=== PATIENT | male | born 1955 | race African-American/Black ===

== ENCOUNTER 2022-02-18 12:19 | Inpatient (IN) | payer OTHER, SELFPAY ==
[2022-02-18 13:06] LABS: #Eosinphils 0.1 thou/uL (0.0-0.7); #Lymphocytes 2.2 thou/uL (1.20-3.40); #Monocytes 0.5 thou/uL (0.11-0.59); #Neutrophils 2.2 thou/uL (1.40-6.50); %Basophils 0.8 % (0.0-1.0); %Lymphocytes 43.4 % (21.0-51.0); %Monocytes 10.1 % (0.0-10.0); %Neutrophils 43.7 % (42.0-75.0); Mean Corpuscular HGB CONC 32.6 g/dL (32.0-36.0); Mean Corpuscular Hemoglobin 29.7 pg (27.0-31.0); Mean Corpuscular Volume 91.3 fL (78.0-98.0); Mean Platelet Volume 6.2 fL (7.4-10.4); Platelet Count 260 thou/uL (130-400); RBC Distribution Width 11.8 % (11.5-14.5); Red Blood Cell (RBC) Count 5.03 mill/uL (4.70-6.10)
[2022-02-18 13:26] LABS: ALT (SGPT) 39 U/L (8-55); AST (SGOT) 67 U/L (5-34); Albumin 3.6 g/dL (3.4-4.8); Alkaline Phosphatase 76 U/L (40-110); Anion Gap 15 mmol/L (10-20); BUN (Urea Nitrogen) 7 mg/dL (8.4-25.7); Bilirubin, Total 0.4 mg/dL (0.2-1.2); Calc. Creatinine Clearance 0 mL/min (70-130); Calcium 9.1 mg/dL (7.8-10.44); Carbon Dioxide 28 mmol/L (23-31); Chloride 102 mmol/L (98-107); Estimated GFR 98; Globulin 3.8 g/dL (2.4-3.5); Glucose 88 mg/dL (80-115); Potassium 3.2 mmol/L (3.5-5.1); Protein, Total 7.4 g/dL (5.8-8.1); Sodium 142 mmol/L (136-145)
[2022-02-18] MEDS ORDERED: Cefepime 2 GM VIAL ONE (15:12)
[2022-02-18 15:52] LABS: Lactic Acid 2.1 mmol/L (0.5-2.2)
[2022-02-18] MEDS ORDERED: Vancomycin 1 GM/200 ML BAG ONE (16:15)
[2022-02-18 17:35] LABS: SARS-CoV-2 NAA Rapid Test Not Detected (NotDetected)
[2022-02-18 19:44] VITALS: BMI 17.2
[2022-02-18] MEDS ORDERED: Potassium Chloride 20 MEQ TAB PO SCH (19:45)
[2022-02-18] MEDS: cefTRIAXone\\ROCEPHIN 2 GM in Sodium Chloride 0.9% 100 ML IVPB SCH (22:19)
[2022-02-19 00:41] LABS: Amphetamine Not Detected (NotDetected); Barbiturates Screen Not Detected (NotDetected); Benzodiazepine Screen Not Detected (NotDetected); Cocaine Metabolite Screen Detected (NotDetected); Methadone Not Detected (NotDetected); Methamphetamine Not Detected (NotDetected); Opiate Screen Not Detected (NotDetected); Oxycodone Screen Not Detected (NotDetected); Phencyclidine (PCP) Not Detected (NotDetected); THC/Cannabinoid Screen Detected (NotDetected); Tricyclic Screen Not Detected (NotDetected)
[2022-02-19 06:00] LABS: #Eosinphils 0.1 thou/uL (0.0-0.7); #Lymphocytes 2.3 thou/uL (1.20-3.40); #Monocytes 0.4 thou/uL (0.11-0.59); #Neutrophils 2.1 thou/uL (1.40-6.50); %Eosinophils 2.3 % (0.0-10.0); %Lymphocytes 45.6 % (21.0-51.0); %Monocytes 8.5 % (0.0-10.0); %Neutrophils 42.6 % (42.0-75.0); Hemoglobin 14.7 g/dL (14.0-18.0); Mean Corpuscular HGB CONC 33.1 g/dL (32.0-36.0); Mean Corpuscular Hemoglobin 30.2 pg (27.0-31.0); Mean Corpuscular Volume 91.4 fL (78.0-98.0); Mean Platelet Volume 6.6 fL (7.4-10.4); Platelet Count 238 thou/uL (130-400); RBC Distribution Width 11.8 % (11.5-14.5); Red Blood Cell (RBC) Count 4.88 mill/uL (4.70-6.10)
[2022-02-19 06:27] LABS: ALT (SGPT) 34 U/L (8-55); AST (SGOT) 52 U/L (5-34); Albumin 3.1 g/dL (3.4-4.8); Alkaline Phosphatase 67 U/L (40-110); Anion Gap 15 mmol/L (10-20); BUN (Urea Nitrogen) 8 mg/dL (8.4-25.7); Bilirubin, Total 0.4 mg/dL (0.2-1.2); Calc. Creatinine Clearance 78 mL/min (70-130); Carbon Dioxide 23 mmol/L (23-31); Chloride 104 mmol/L (98-107); Estimated GFR 103; Globulin 3.8 g/dL (2.4-3.5); Glucose 93 mg/dL (80-115); Potassium 3.9 mmol/L (3.5-5.1); Protein, Total 6.9 g/dL (5.8-8.1); Sodium 138 mmol/L (136-145)
[2022-02-19] MEDS ORDERED: Amlodipine 5 MG TAB PO SCH ×2 (10:30→17:45)
[2022-02-19] MEDS: Multivit, Therapeutic 1 TAB PO SCH (10:36)
[2022-02-19] MEDS: Folic Acid 1 MG TAB PO SCH (10:36)
[2022-02-19] MEDS: Enoxaparin Sodium 40 MG/0.4 ML SYRINGE SC SCH (10:36)
[2022-02-19 16:23] LABS: Hemoglobin A1c 5.4 % (4.0-6.0)
[2022-02-19 16:29] LABS: Cardiac Risk 2.4 (Less than 4.5)
[2022-02-19] MEDS: cefTRIAXone\\ROCEPHIN 2 GM in Sodium Chloride 0.9% 100 ML IVPB SCH (19:34)
[2022-02-20] MEDS: Acetaminophen 325 MG TAB PO PRN ×2 (03:31→22:40)
[2022-02-20 06:15] LABS: Hemoglobin 14.7 g/dL (14.0-18.0); Mean Corpuscular HGB CONC 32.3 g/dL (32.0-36.0); Mean Corpuscular Hemoglobin 29.7 pg (27.0-31.0); Mean Corpuscular Volume 91.9 fL (78.0-98.0); Mean Platelet Volume 6.6 fL (7.4-10.4); Platelet Count 233 thou/uL (130-400); RBC Distribution Width 11.7 % (11.5-14.5); Red Blood Cell (RBC) Count 4.97 mill/uL (4.70-6.10); White Blood Cell (WBC) Count 4.3 thou/uL (4.8-10.8)
[2022-02-20 06:40] LABS: ALT (SGPT) 36 U/L (8-55); AST (SGOT) 57 U/L (5-34); Albumin 3.2 g/dL (3.4-4.8); Alkaline Phosphatase 68 U/L (40-110); Anion Gap 15 mmol/L (10-20); BUN (Urea Nitrogen) 8 mg/dL (8.4-25.7); Bilirubin, Total 0.4 mg/dL (0.2-1.2); Calc. Creatinine Clearance 80 mL/min (70-130); Carbon Dioxide 24 mmol/L (23-31); Chloride 103 mmol/L (98-107); Estimated GFR 104; Globulin 3.9 g/dL (2.4-3.5); Glucose 94 mg/dL (80-115); Potassium 3.5 mmol/L (3.5-5.1); Protein, Total 7.1 g/dL (5.8-8.1); Sodium 138 mmol/L (136-145)
[2022-02-20] MEDS ORDERED: Amlodipine 5 MG TAB PO SCH (09:00)
[2022-02-20] MEDS: Amlodipine 10 MG TAB PO SCH (09:17)
[2022-02-20] MEDS: Enoxaparin Sodium 40 MG/0.4 ML SYRINGE SC SCH (09:17)
[2022-02-20] MEDS: Multivit, Therapeutic 1 TAB PO SCH (09:17)
[2022-02-20] MEDS: Folic Acid 1 MG TAB PO SCH (09:17)
[2022-02-20] MEDS: Morphine 2 MG/ML VIAL SLOW IVP PRN (22:41)
[2022-02-21 05:51] LABS: Hemoglobin 14.1 g/dL (14.0-18.0); Mean Corpuscular HGB CONC 32.7 g/dL (32.0-36.0); Mean Corpuscular Volume 91.6 fL (78.0-98.0); Mean Platelet Volume 6.5 fL (7.4-10.4); Platelet Count 236 thou/uL (130-400); RBC Distribution Width 11.8 % (11.5-14.5); Red Blood Cell (RBC) Count 4.69 mill/uL (4.70-6.10); White Blood Cell (WBC) Count 4.6 thou/uL (4.8-10.8)
[2022-02-21 06:13] LABS: ALT (SGPT) 38 U/L (8-55); AST (SGOT) 58 U/L (5-34); Alkaline Phosphatase 73 U/L (40-110); Anion Gap 14 mmol/L (10-20); BUN (Urea Nitrogen) 11 mg/dL (8.4-25.7); Bilirubin, Total 0.3 mg/dL (0.2-1.2); Calc. Creatinine Clearance 75 mL/min (70-130); Carbon Dioxide 22 mmol/L (23-31); Chloride 104 mmol/L (98-107); Estimated GFR 102; Globulin 3.9 g/dL (2.4-3.5); Glucose 98 mg/dL (80-115); Protein, Total 6.9 g/dL (5.8-8.1); Sodium 136 mmol/L (136-145)
[2022-02-21] MEDS: Enoxaparin Sodium 40 MG/0.4 ML SYRINGE SC SCH (08:46)
[2022-02-21] MEDS: Amlodipine 10 MG TAB PO SCH (08:46)
[2022-02-21] MEDS: Multivit, Therapeutic 1 TAB PO SCH (08:46)
[2022-02-21] MEDS: Folic Acid 1 MG TAB PO SCH (08:46)
[2022-02-21] MEDS ORDERED: Iopamidol-370 76% 500 ML 1 ML ONE (13:07)
[2022-02-21] MEDS: Acetaminophen 325 MG TAB PO PRN (22:01)
[2022-02-21] MEDS: Thiamine 100 MG TAB PO SCH (22:01)
[2022-02-21] MEDS: Morphine 2 MG/ML VIAL SLOW IVP PRN (22:04)
[2022-02-22] MEDS: Morphine 2 MG/ML VIAL SLOW IVP PRN ×2 (09:31→20:38)
[2022-02-22] MEDS: Amlodipine 10 MG TAB PO SCH (09:32)
[2022-02-22 09:39] LABS: #Basophils 0.1 thou/uL (0.0-0.2); #Eosinphils 0.1 thou/uL (0.0-0.7); #Lymphocytes 1.9 thou/uL (1.20-3.40); #Monocytes 0.5 thou/uL (0.11-0.59); #Neutrophils 1.8 thou/uL (1.40-6.50); %Basophils 1.4 % (0.0-1.0); %Eosinophils 2.7 % (0.0-10.0); %Lymphocytes 44.6 % (21.0-51.0); %Monocytes 10.5 % (0.0-10.0); %Neutrophils 40.8 % (42.0-75.0); Mean Corpuscular HGB CONC 32.2 g/dL (32.0-36.0); Mean Corpuscular Hemoglobin 29.7 pg (27.0-31.0); Mean Corpuscular Volume 92.4 fL (78.0-98.0); Mean Platelet Volume 6.3 fL (7.4-10.4); Platelet Count 232 thou/uL (130-400); RBC Distribution Width 11.8 % (11.5-14.5); Red Blood Cell (RBC) Count 5.04 mill/uL (4.70-6.10); White Blood Cell (WBC) Count 4.3 thou/uL (4.8-10.8)
[2022-02-22 10:03] LABS: ALT (SGPT) 48 U/L (8-55); AST (SGOT) 70 U/L (5-34); Albumin 3.2 g/dL (3.4-4.8); Alkaline Phosphatase 69 U/L (40-110); Anion Gap 12 mmol/L (10-20); BUN (Urea Nitrogen) 12 mg/dL (8.4-25.7); Bilirubin, Total 0.3 mg/dL (0.2-1.2); Calc. Creatinine Clearance 75 mL/min (70-130); Carbon Dioxide 24 mmol/L (23-31); Chloride 103 mmol/L (98-107); Estimated GFR 102; Globulin 3.9 g/dL (2.4-3.5); Glucose 98 mg/dL (80-115); Potassium 4.1 mmol/L (3.5-5.1); Protein, Total 7.1 g/dL (5.8-8.1); Sodium 135 mmol/L (136-145)
[2022-02-22] MEDS: Enoxaparin Sodium 40 MG/0.4 ML SYRINGE SC SCH ×2 (11:13→20:40)
[2022-02-22] MEDS: Multivit, Therapeutic 1 TAB PO SCH (11:13)
[2022-02-22] MEDS: Folic Acid 1 MG TAB PO SCH (11:13)
[2022-02-22] MEDS: Aspirin 81 mg Enteric Coated Tablet PO SCH (11:13)
[2022-02-22] MEDS: Acetaminophen 325 MG TAB PO PRN ×2 (16:12→20:39)
[2022-02-22] MEDS: Thiamine 100 MG TAB PO SCH (20:40)
[2022-02-23] MEDS: Morphine 2 MG/ML VIAL SLOW IVP PRN ×2 (05:48→22:49)
[2022-02-23] MEDS: Acetaminophen 325 MG TAB PO PRN ×2 (05:48→20:36)
[2022-02-23] MEDS ORDERED: Lactated Ringer's 1,000 ML IV SCH (07:00)
[2022-02-23 07:09] LABS: #Eosinphils 0.1 thou/uL (0.0-0.7); #Lymphocytes 2.1 thou/uL (1.20-3.40); #Monocytes 0.6 thou/uL (0.11-0.59); %Basophils 0.5 % (0.0-1.0); %Eosinophils 2.3 % (0.0-10.0); %Lymphocytes 43.1 % (21.0-51.0); %Neutrophils 42.1 % (42.0-75.0); Hemoglobin 14.5 g/dL (14.0-18.0); Mean Corpuscular HGB CONC 32.4 g/dL (32.0-36.0); Mean Corpuscular Hemoglobin 30.1 pg (27.0-31.0); Mean Corpuscular Volume 92.6 fL (78.0-98.0); Mean Platelet Volume 6.7 fL (7.4-10.4); Platelet Count 217 thou/uL (130-400); RBC Distribution Width 11.9 % (11.5-14.5); Red Blood Cell (RBC) Count 4.83 mill/uL (4.70-6.10); White Blood Cell (WBC) Count 4.8 thou/uL (4.8-10.8)
[2022-02-23 07:29] LABS: ALT (SGPT) 50 U/L (8-55); AST (SGOT) 67 U/L (5-34); Albumin 3.1 g/dL (3.4-4.8); Alkaline Phosphatase 74 U/L (40-110); Anion Gap 13 mmol/L (10-20); BUN (Urea Nitrogen) 11 mg/dL (8.4-25.7); Bilirubin, Total 0.3 mg/dL (0.2-1.2); Calc. Creatinine Clearance 78 mL/min (70-130); Carbon Dioxide 22 mmol/L (23-31); Chloride 105 mmol/L (98-107); Estimated GFR 103; Globulin 3.9 g/dL (2.4-3.5); Glucose 99 mg/dL (80-115); Potassium 3.9 mmol/L (3.5-5.1); Sodium 136 mmol/L (136-145)
[2022-02-23] MEDS: Folic Acid 1 MG TAB PO SCH (08:19)
[2022-02-23] MEDS: Aspirin 81 mg Enteric Coated Tablet PO SCH (08:19)
[2022-02-23] MEDS: Amlodipine 10 MG TAB PO SCH (08:19)
[2022-02-23] MEDS: Multivit, Therapeutic 1 TAB PO SCH (08:19)
[2022-02-23] MEDS ORDERED: Heparin 5,000 UNITS/ML VIAL ONE ×2 (08:30→11:09)
[2022-02-23] MEDS ORDERED: Protamine Sulfate 50 MG/5 ML VIAL ONE (08:30)
[2022-02-23] MEDS ORDERED: fentaNYL Citrate/PF 100 MCG/2 ML SYRINGE ONE (09:07)
[2022-02-23] MEDS ORDERED: Sodium Chloride 0.9% 100 ML ONE (09:17)
[2022-02-23] MEDS ORDERED: CEFAZOLIN 2 GM VIAL ONE (09:17)
[2022-02-23] MEDS ORDERED: Dexamethasone 20 MG/5 ML VIAL ONE (09:40)
[2022-02-23] MEDS ORDERED: Lidocaine 1% MPF 2 ML VIAL ONE (09:40)
[2022-02-23] MEDS ORDERED: Rocuronium Bromide 10 MG/ML (10ML VIAL) ONE (09:40)
[2022-02-23] MEDS ORDERED: Glycopyrrolate 0.2 MG/ML 5 ML SYRINGE ONE (09:40)
[2022-02-23] MEDS ORDERED: PROPOFOL 200 MG/20 ML VIAL ONE (09:40)
[2022-02-23] MEDS ORDERED: NEOSTIGMINE 3 MG/3 ML SYR 3 MG/3 ML SYRINGE ONE (09:40)
[2022-02-23] MEDS ORDERED: Phenylephrine 10 MG/ML VIAL ONE (09:40)
[2022-02-23] MEDS ORDERED: Ondansetron PF 4 MG/2 ML Vial ONE (09:40)
[2022-02-23] MEDS ORDERED: Ondansetron PF 4 MG/2 ML Vial IVP PRN (13:01)
[2022-02-23] MEDS ORDERED: Fentanyl 100 MCG/2 ML VIAL SLOW IVP PRN ×2 (13:01)
[2022-02-23] MEDS: Ketorolac Tromethamine 30 MG/ML VIAL IVP SCH ×2 (16:55→20:36)
[2022-02-23] MEDS: CEFAZOLIN 2 GM in Sodium Chloride 0.9% 100 ML IVPB SCH (16:56)
[2022-02-23] MEDS: Sodium Chloride 0.9% 1,000 ML IV SCH (16:56)
[2022-02-23] MEDS ORDERED: Polyvinyl Alcohol 1.4%/Povidone 0.6% Opth Drops EA EYE SCH (17:30)
[2022-02-23] MEDS: Thiamine 100 MG TAB PO SCH (20:36)
[2022-02-23] MEDS: Enoxaparin Sodium 40 MG/0.4 ML SYRINGE SC SCH (21:21)
[2022-02-24] MEDS: CEFAZOLIN 2 GM in Sodium Chloride 0.9% 100 ML IVPB SCH ×2 (02:01→09:01)
[2022-02-24] MEDS: Morphine 2 MG/ML VIAL SLOW IVP PRN (05:55)
[2022-02-24] MEDS: Ketorolac Tromethamine 30 MG/ML VIAL IVP SCH (05:55)
[2022-02-24] MEDS: Acetaminophen 325 MG TAB PO PRN ×2 (05:56→20:37)
[2022-02-24] MEDS: Aspirin Chewable 81 MG TAB PO SCH (09:01)
[2022-02-24] MEDS: Amlodipine 10 MG TAB PO SCH (09:01)
[2022-02-24] MEDS: Folic Acid 1 MG TAB PO SCH (09:01)
[2022-02-24] MEDS: Multivit, Therapeutic 1 TAB PO SCH (09:01)
[2022-02-24] MEDS: Sodium Chloride 0.9% 1,000 ML IV SCH (09:02)
[2022-02-24] MEDS: traMADol HCl 50 MG TAB PO PRN ×2 (09:07→20:37)
[2022-02-24] MEDS: Thiamine 100 MG TAB PO SCH (20:37)
[2022-02-24] MEDS: Enoxaparin Sodium 40 MG/0.4 ML SYRINGE SC SCH (20:37)
[2022-02-25] MEDS: Sodium Chloride 0.9% 1,000 ML IV SCH (05:14)
[2022-02-25] MEDS: Acetaminophen 325 MG TAB PO PRN (05:15)
[2022-02-25] MEDS: traMADol HCl 50 MG TAB PO PRN ×2 (05:15→17:39)
[2022-02-25 05:35] LABS: #Eosinphils 0.1 thou/uL (0.0-0.7); #Lymphocytes 2.2 thou/uL (1.20-3.40); #Monocytes 0.8 thou/uL (0.11-0.59); #Neutrophils 4.7 thou/uL (1.40-6.50); %Basophils 0.3 % (0.0-1.0); %Eosinophils 0.8 % (0.0-10.0); %Lymphocytes 28.5 % (21.0-51.0); %Monocytes 9.6 % (0.0-10.0); %Neutrophils 60.8 % (42.0-75.0); Hemoglobin 12.3 g/dL (14.0-18.0); Mean Corpuscular HGB CONC 31.7 g/dL (32.0-36.0); Mean Corpuscular Hemoglobin 29.2 pg (27.0-31.0); Mean Corpuscular Volume 92.1 fL (78.0-98.0); Mean Platelet Volume 6.7 fL (7.4-10.4); Platelet Count 178 thou/uL (130-400); RBC Distribution Width 12.1 % (11.5-14.5); Red Blood Cell (RBC) Count 4.22 mill/uL (4.70-6.10); White Blood Cell (WBC) Count 7.8 thou/uL (4.8-10.8)
[2022-02-25 05:59] LABS: Anion Gap 13 mmol/L (10-20); BUN (Urea Nitrogen) 10 mg/dL (8.4-25.7); Calc. Creatinine Clearance 87 mL/min (70-130); Calcium 8.4 mg/dL (7.8-10.44); Carbon Dioxide 20 mmol/L (23-31); Chloride 107 mmol/L (98-107); Estimated GFR 107; Glucose 102 mg/dL (80-115); Potassium 3.9 mmol/L (3.5-5.1); Sodium 136 mmol/L (136-145)
[2022-02-25] MEDS: Aspirin Chewable 81 MG TAB PO SCH (09:16)
[2022-02-25] MEDS: Amlodipine 10 MG TAB PO SCH (09:16)
[2022-02-25] MEDS: Folic Acid 1 MG TAB PO SCH (09:16)
[2022-02-25] MEDS: Multivit, Therapeutic 1 TAB PO SCH (09:16)
[2022-02-25] MEDS: Thiamine 100 MG TAB PO SCH (21:25)
[2022-02-25] MEDS: Enoxaparin Sodium 40 MG/0.4 ML SYRINGE SC SCH (21:25)
[2022-02-26] MEDS: Sodium Chloride 0.9% 1,000 ML IV SCH ×2 (00:39→22:08)
[2022-02-26 07:07] LABS: #Lymphocytes 2.1 thou/uL (1.20-3.40); #Monocytes 0.6 thou/uL (0.11-0.59); #Neutrophils 4.6 thou/uL (1.40-6.50); %Basophils 0.1 % (0.0-1.0); %Eosinophils 0.1 % (0.0-10.0); %Monocytes 8.4 % (0.0-10.0); %Neutrophils 63.3 % (42.0-75.0); Hemoglobin 12.4 g/dL (14.0-18.0); Mean Corpuscular HGB CONC 32.3 g/dL (32.0-36.0); Mean Corpuscular Hemoglobin 29.4 pg (27.0-31.0); Mean Corpuscular Volume 90.9 fL (78.0-98.0); Mean Platelet Volume 6.4 fL (7.4-10.4); Platelet Count 200 thou/uL (130-400); RBC Distribution Width 11.9 % (11.5-14.5); Red Blood Cell (RBC) Count 4.21 mill/uL (4.70-6.10); White Blood Cell (WBC) Count 7.3 thou/uL (4.8-10.8)
[2022-02-26 07:27] LABS: Anion Gap 12 mmol/L (10-20); BUN (Urea Nitrogen) 9 mg/dL (8.4-25.7); Calc. Creatinine Clearance 90 mL/min (70-130); Carbon Dioxide 22 mmol/L (23-31); Chloride 101 mmol/L (98-107); Estimated GFR 108; Glucose 107 mg/dL (80-115); Sodium 131 mmol/L (136-145)
[2022-02-26] MEDS: Amlodipine 10 MG TAB PO SCH (09:40)
[2022-02-26] MEDS: Folic Acid 1 MG TAB PO SCH (09:40)
[2022-02-26] MEDS: Aspirin Chewable 81 MG TAB PO SCH (09:40)
[2022-02-26] MEDS: Multivit, Therapeutic 1 TAB PO SCH (09:40)
[2022-02-26] MEDS ORDERED: Polyethylene Glycol 3350 17 GM Packet PO SCH (11:00)
[2022-02-26] MEDS ORDERED: Polyethylene Glycol 3350 17 GM Packet PO PRN (11:34)
[2022-02-26] MEDS: traMADol HCl 50 MG TAB PO PRN (15:16)
[2022-02-26] MEDS: Thiamine 100 MG TAB PO SCH (20:35)
[2022-02-26] MEDS: Enoxaparin Sodium 40 MG/0.4 ML SYRINGE SC SCH (20:35)
[2022-02-27 05:26] LABS: #Eosinphils 0.1 thou/uL (0.0-0.7); #Lymphocytes 2.7 thou/uL (1.20-3.40); #Monocytes 0.6 thou/uL (0.11-0.59); #Neutrophils 4.1 thou/uL (1.40-6.50); %Basophils 0.2 % (0.0-1.0); %Eosinophils 0.9 % (0.0-10.0); %Lymphocytes 36.3 % (21.0-51.0); %Monocytes 8.2 % (0.0-10.0); %Neutrophils 54.4 % (42.0-75.0); Hemoglobin 11.9 g/dL (14.0-18.0); Mean Corpuscular HGB CONC 33.1 g/dL (32.0-36.0); Mean Corpuscular Volume 90.6 fL (78.0-98.0); Mean Platelet Volume 6.6 fL (7.4-10.4); Platelet Count 224 thou/uL (130-400); RBC Distribution Width 11.7 % (11.5-14.5); Red Blood Cell (RBC) Count 3.95 mill/uL (4.70-6.10); White Blood Cell (WBC) Count 7.5 thou/uL (4.8-10.8)
[2022-02-27] MEDS: traMADol HCl 50 MG TAB PO PRN (05:37)
[2022-02-27 05:52] LABS: Anion Gap 12 mmol/L (10-20); BUN (Urea Nitrogen) 16 mg/dL (8.4-25.7); Calc. Creatinine Clearance 77 mL/min (70-130); Calcium 9.1 mg/dL (7.8-10.44); Carbon Dioxide 21 mmol/L (23-31); Chloride 99 mmol/L (98-107); Estimated GFR 103; Glucose 131 mg/dL (80-115); Potassium 3.4 mmol/L (3.5-5.1); Sodium 129 mmol/L (136-145)
[2022-02-27 08:25] LABS: Troponin I Less than 0.010 ng/mL (< 0.028)
[2022-02-27] MEDS ORDERED: Potassium Chloride 20 MEQ TAB PO SCH (08:45)
[2022-02-27] MEDS: Aspirin Chewable 81 MG TAB PO SCH (08:56)
[2022-02-27] MEDS: Amlodipine 10 MG TAB PO SCH (08:56)
[2022-02-27] MEDS: Multivit, Therapeutic 1 TAB PO SCH (08:57)
[2022-02-27] MEDS: Folic Acid 1 MG TAB PO SCH (08:57)
[2022-02-27] MEDS ORDERED: Polyethylene Glycol 3350 17 GM Packet PO SCH (09:00)
[2022-02-27] MEDS ORDERED: Iopamidol-370 76% 500 ML 1 ML ONE (10:13)
[2022-02-27] MEDS ORDERED: VANCOMYCIN 1.25 GM/250 ML BAG 1.25 GM in Premix Bag 1 BAG IVPB SCH (11:30)
[2022-02-27 13:23] LABS: SARS-CoV-2 NAA Rapid Test Not Detected (NotDetected)
[2022-02-27] MEDS: Cefepime 2 GM in Sodium Chloride 0.9% 100 ML IVPB SCH ×2 (14:56→21:46)
[2022-02-27] MEDS: Thiamine 100 MG TAB PO SCH (20:38)
[2022-02-27] MEDS: Enoxaparin Sodium 40 MG/0.4 ML SYRINGE SC SCH (20:39)
[2022-02-28] MEDS: Vancomycin HCl 750 MG in Sodium Chloride 0.9% 250 ML 250 ML IVPB SCH ×2 (01:38→12:08)
[2022-02-28 06:09] LABS: #Eosinphils 0.1 thou/uL (0.0-0.7); #Lymphocytes 1.3 thou/uL (1.20-3.40); #Monocytes 0.5 thou/uL (0.11-0.59); #Neutrophils 2.4 thou/uL (1.40-6.50); %Basophils 0.2 % (0.0-1.0); %Eosinophils 2.9 % (0.0-10.0); %Lymphocytes 28.9 % (21.0-51.0); %Monocytes 11.6 % (0.0-10.0); %Neutrophils 56.3 % (42.0-75.0); Hemoglobin 10.6 g/dL (14.0-18.0); Mean Corpuscular HGB CONC 32.1 g/dL (32.0-36.0); Mean Corpuscular Hemoglobin 28.8 pg (27.0-31.0); Mean Corpuscular Volume 89.9 fL (78.0-98.0); Mean Platelet Volume 6.1 fL (7.4-10.4); Platelet Count 199 thou/uL (130-400); RBC Distribution Width 11.5 % (11.5-14.5); Red Blood Cell (RBC) Count 3.69 mill/uL (4.70-6.10); White Blood Cell (WBC) Count 4.3 thou/uL (4.8-10.8)
[2022-02-28] MEDS: Cefepime 2 GM in Sodium Chloride 0.9% 100 ML IVPB SCH ×2 (06:12→13:38)
[2022-02-28] MEDS: Acetaminophen 325 MG TAB PO PRN (06:12)
[2022-02-28 06:33] LABS: ALT (SGPT) 30 U/L (8-55); AST (SGOT) 42 U/L (5-34); Albumin 2.6 g/dL (3.4-4.8); Alkaline Phosphatase 55 U/L (40-110); Anion Gap 12 mmol/L (10-20); BUN (Urea Nitrogen) 13 mg/dL (8.4-25.7); Bilirubin, Total 0.7 mg/dL (0.2-1.2); Calc. Creatinine Clearance 93 mL/min (70-130); Calcium 8.4 mg/dL (7.8-10.44); Carbon Dioxide 21 mmol/L (23-31); Chloride 102 mmol/L (98-107); Estimated GFR 109; Globulin 3.3 g/dL (2.4-3.5); Glucose 94 mg/dL (80-115); Potassium 3.8 mmol/L (3.5-5.1); Protein, Total 5.9 g/dL (5.8-8.1); Sodium 131 mmol/L (136-145)
[2022-02-28] MEDS: Folic Acid 1 MG TAB PO SCH (09:50)
[2022-02-28] MEDS: Multivit, Therapeutic 1 TAB PO SCH (09:50)
[2022-02-28] MEDS: Amlodipine 10 MG TAB PO SCH (09:50)
[2022-02-28] MEDS: Aspirin Chewable 81 MG TAB PO SCH (09:51)
[2022-02-28] MEDS: Polyethylene Glycol 3350 17 GM Packet PO SCH (09:52)
[2022-02-28] MEDS: Enoxaparin Sodium 40 MG/0.4 ML SYRINGE SC SCH (20:28)
[2022-02-28] MEDS: Thiamine 100 MG TAB PO SCH (20:28)
[2022-02-28 23:33] LABS: Vancomycin, Trough 4.7 ug/mL
[2022-03-01] MEDS: traMADol HCl 50 MG TAB PO PRN ×2 (03:27→17:08)
[2022-03-01 06:05] LABS: #Eosinphils 0.2 thou/uL (0.0-0.7); #Lymphocytes 1.4 thou/uL (1.20-3.40); #Monocytes 0.6 thou/uL (0.11-0.59); #Neutrophils 2.9 thou/uL (1.40-6.50); %Basophils 0.5 % (0.0-1.0); %Lymphocytes 27.5 % (21.0-51.0); %Monocytes 12.1 % (0.0-10.0); %Neutrophils 56.9 % (42.0-75.0); Hemoglobin 10.6 g/dL (14.0-18.0); Mean Corpuscular Hemoglobin 29.6 pg (27.0-31.0); Mean Corpuscular Volume 89.6 fL (78.0-98.0); Mean Platelet Volume 6.5 fL (7.4-10.4); Platelet Count 233 thou/uL (130-400); RBC Distribution Width 11.4 % (11.5-14.5); Red Blood Cell (RBC) Count 3.58 mill/uL (4.70-6.10); White Blood Cell (WBC) Count 5.1 thou/uL (4.8-10.8)
[2022-03-01 06:25] LABS: ALT (SGPT) 34 U/L (8-55); AST (SGOT) 43 U/L (5-34); Albumin 2.8 g/dL (3.4-4.8); Alkaline Phosphatase 64 U/L (40-110); Anion Gap 12 mmol/L (10-20); BUN (Urea Nitrogen) 10 mg/dL (8.4-25.7); Bilirubin, Total 0.8 mg/dL (0.2-1.2); Calc. Creatinine Clearance 90 mL/min (70-130); Calcium 8.5 mg/dL (7.8-10.44); Carbon Dioxide 22 mmol/L (23-31); Chloride 103 mmol/L (98-107); Estimated GFR 108; Globulin 3.4 g/dL (2.4-3.5); Glucose 99 mg/dL (80-115); Potassium 3.8 mmol/L (3.5-5.1); Protein, Total 6.2 g/dL (5.8-8.1); Sodium 133 mmol/L (136-145)
[2022-03-01] MEDS: Amlodipine 10 MG TAB PO SCH (08:01)
[2022-03-01] MEDS: Polyethylene Glycol 3350 17 GM Packet PO SCH (08:01)
[2022-03-01] MEDS: Multivit, Therapeutic 1 TAB PO SCH (08:01)
[2022-03-01] MEDS: Aspirin Chewable 81 MG TAB PO SCH (08:01)
[2022-03-01] MEDS: Folic Acid 1 MG TAB PO SCH (08:01)
[2022-03-01] MEDS: Acetaminophen 325 MG TAB PO PRN (08:01)
[2022-03-01] MEDS: Enoxaparin Sodium 30 MG/0.3 ML SYRINGE SC SCH (20:18)
[2022-03-01] MEDS: Thiamine 100 MG TAB PO SCH (20:18)
[2022-03-02 05:45] LABS: #Eosinphils 0.2 thou/uL (0.0-0.7); #Lymphocytes 2.1 thou/uL (1.20-3.40); #Monocytes 0.5 thou/uL (0.11-0.59); #Neutrophils 2.4 thou/uL (1.40-6.50); %Basophils 0.3 % (0.0-1.0); %Eosinophils 3.8 % (0.0-10.0); %Lymphocytes 40.9 % (21.0-51.0); %Monocytes 10.1 % (0.0-10.0); Hemoglobin 11.3 g/dL (14.0-18.0); Mean Corpuscular HGB CONC 32.3 g/dL (32.0-36.0); Mean Corpuscular Hemoglobin 28.9 pg (27.0-31.0); Mean Corpuscular Volume 89.6 fL (78.0-98.0); Mean Platelet Volume 6.5 fL (7.4-10.4); Platelet Count 247 thou/uL (130-400); RBC Distribution Width 11.5 % (11.5-14.5); Red Blood Cell (RBC) Count 3.92 mill/uL (4.70-6.10); White Blood Cell (WBC) Count 5.3 thou/uL (4.8-10.8)
[2022-03-02 06:10] LABS: ALT (SGPT) 31 U/L (8-55); AST (SGOT) 44 U/L (5-34); Albumin 2.8 g/dL (3.4-4.8); Alkaline Phosphatase 71 U/L (40-110); Anion Gap 12 mmol/L (10-20); BUN (Urea Nitrogen) 14 mg/dL (8.4-25.7); Bilirubin, Total 0.8 mg/dL (0.2-1.2); Calc. Creatinine Clearance 90 mL/min (70-130); Calcium 8.8 mg/dL (7.8-10.44); Carbon Dioxide 23 mmol/L (23-31); Chloride 101 mmol/L (98-107); Estimated GFR 108; Globulin 3.6 g/dL (2.4-3.5); Glucose 96 mg/dL (80-115); Potassium 3.7 mmol/L (3.5-5.1); Protein, Total 6.4 g/dL (5.8-8.1); Sodium 132 mmol/L (136-145)
[2022-03-02] MEDS: Folic Acid 1 MG TAB PO SCH (07:46)
[2022-03-02] MEDS: Aspirin Chewable 81 MG TAB PO SCH (07:46)
[2022-03-02] MEDS: Multivit, Therapeutic 1 TAB PO SCH (07:46)
[2022-03-02] MEDS: Amlodipine 10 MG TAB PO SCH (07:47)
[2022-03-02] MEDS: Polyethylene Glycol 3350 17 GM Packet PO SCH (07:48)
[2022-03-02] MEDS: Enoxaparin Sodium 30 MG/0.3 ML SYRINGE SC SCH (22:04)
[2022-03-02] MEDS: Thiamine 100 MG TAB PO SCH (22:04)
[2022-03-03 05:38] LABS: #Eosinphils 0.1 thou/uL (0.0-0.7); #Monocytes 0.7 thou/uL (0.11-0.59); #Neutrophils 3.2 thou/uL (1.40-6.50); %Basophils 0.7 % (0.0-1.0); %Eosinophils 2.4 % (0.0-10.0); %Lymphocytes 32.2 % (21.0-51.0); %Monocytes 11.5 % (0.0-10.0); %Neutrophils 53.3 % (42.0-75.0); Hemoglobin 10.6 g/dL (14.0-18.0); Mean Corpuscular HGB CONC 33.1 g/dL (32.0-36.0); Mean Corpuscular Hemoglobin 29.6 pg (27.0-31.0); Mean Corpuscular Volume 89.3 fL (78.0-98.0); Mean Platelet Volume 6.4 fL (7.4-10.4); Platelet Count 256 thou/uL (130-400); RBC Distribution Width 11.5 % (11.5-14.5); Red Blood Cell (RBC) Count 3.59 mill/uL (4.70-6.10); White Blood Cell (WBC) Count 6.1 thou/uL (4.8-10.8)
[2022-03-03] MEDS: Acetaminophen 325 MG TAB PO PRN (06:01)
[2022-03-03] MEDS: traMADol HCl 50 MG TAB PO PRN (06:02)
[2022-03-03 06:05] LABS: ALT (SGPT) 35 U/L (8-55); AST (SGOT) 52 U/L (5-34); Albumin 2.9 g/dL (3.4-4.8); Alkaline Phosphatase 77 U/L (40-110); Anion Gap 13 mmol/L (10-20); BUN (Urea Nitrogen) 14 mg/dL (8.4-25.7); Bilirubin, Total 0.9 mg/dL (0.2-1.2); Calc. Creatinine Clearance 85 mL/min (70-130); Calcium 8.9 mg/dL (7.8-10.44); Carbon Dioxide 21 mmol/L (23-31); Chloride 103 mmol/L (98-107); Estimated GFR 106; Globulin 3.7 g/dL (2.4-3.5); Glucose 98 mg/dL (80-115); Potassium 3.7 mmol/L (3.5-5.1); Protein, Total 6.6 g/dL (5.8-8.1); Sodium 133 mmol/L (136-145)
[2022-03-03] MEDS: Polyethylene Glycol 3350 17 GM Packet PO SCH (08:46)
[2022-03-03] MEDS: Folic Acid 1 MG TAB PO SCH (08:46)
[2022-03-03] MEDS: Multivit, Therapeutic 1 TAB PO SCH (08:47)
[2022-03-03] MEDS: Amlodipine 10 MG TAB PO SCH (08:47)
[2022-03-03] MEDS: Aspirin Chewable 81 MG TAB PO SCH (08:47)
[2022-03-03] MEDS: Enoxaparin Sodium 30 MG/0.3 ML SYRINGE SC SCH (20:03)
[2022-03-03] MEDS: Thiamine 100 MG TAB PO SCH (20:03)
[2022-03-04] MEDS: traMADol HCl 50 MG TAB PO PRN ×3 (03:54→20:04)
[2022-03-04 06:33] LABS: #Eosinphils 0.3 thou/uL (0.0-0.7); #Lymphocytes 2.7 thou/uL (1.20-3.40); #Monocytes 0.6 thou/uL (0.11-0.59); #Neutrophils 2.8 thou/uL (1.40-6.50); %Basophils 0.3 % (0.0-1.0); %Lymphocytes 41.5 % (21.0-51.0); %Monocytes 9.9 % (0.0-10.0); %Neutrophils 44.3 % (42.0-75.0); Hemoglobin 10.3 g/dL (14.0-18.0); Mean Corpuscular HGB CONC 32.5 g/dL (32.0-36.0); Mean Corpuscular Hemoglobin 29.2 pg (27.0-31.0); Mean Corpuscular Volume 89.9 fL (78.0-98.0); Mean Platelet Volume 6.3 fL (7.4-10.4); Platelet Count 269 thou/uL (130-400); RBC Distribution Width 11.7 % (11.5-14.5); Red Blood Cell (RBC) Count 3.51 mill/uL (4.70-6.10); White Blood Cell (WBC) Count 6.4 thou/uL (4.8-10.8)
[2022-03-04 06:57] LABS: ALT (SGPT) 36 U/L (8-55); AST (SGOT) 53 U/L (5-34); Albumin 2.8 g/dL (3.4-4.8); Alkaline Phosphatase 75 U/L (40-110); Anion Gap 12 mmol/L (10-20); BUN (Urea Nitrogen) 12 mg/dL (8.4-25.7); Bilirubin, Total 0.6 mg/dL (0.2-1.2); Calc. Creatinine Clearance 86 mL/min (70-130); Calcium 8.8 mg/dL (7.8-10.44); Carbon Dioxide 23 mmol/L (23-31); Chloride 102 mmol/L (98-107); Estimated GFR 106; Globulin 3.6 g/dL (2.4-3.5); Glucose 88 mg/dL (80-115); Potassium 3.8 mmol/L (3.5-5.1); Protein, Total 6.4 g/dL (5.8-8.1); Sodium 133 mmol/L (136-145)
[2022-03-04] MEDS: Folic Acid 1 MG TAB PO SCH (08:25)
[2022-03-04] MEDS: Amlodipine 10 MG TAB PO SCH (08:25)
[2022-03-04] MEDS: Aspirin Chewable 81 MG TAB PO SCH (08:25)
[2022-03-04] MEDS: Polyethylene Glycol 3350 17 GM Packet PO SCH (08:26)
[2022-03-04] MEDS: Multivit, Therapeutic 1 TAB PO SCH (08:26)
[2022-03-04] MEDS: Enoxaparin Sodium 30 MG/0.3 ML SYRINGE SC SCH (20:05)
[2022-03-04] MEDS: Thiamine 100 MG TAB PO SCH (20:05)
[2022-03-05 05:41] LABS: #Eosinphils 0.3 thou/uL (0.0-0.7); #Lymphocytes 2.5 thou/uL (1.20-3.40); #Monocytes 0.7 thou/uL (0.11-0.59); #Neutrophils 2.7 thou/uL (1.40-6.50); %Basophils 0.5 % (0.0-1.0); %Eosinophils 4.2 % (0.0-10.0); %Lymphocytes 41.3 % (21.0-51.0); %Monocytes 10.8 % (0.0-10.0); %Neutrophils 43.3 % (42.0-75.0); Hemoglobin 10.7 g/dL (14.0-18.0); Mean Corpuscular HGB CONC 32.3 g/dL (32.0-36.0); Mean Corpuscular Hemoglobin 29.3 pg (27.0-31.0); Mean Corpuscular Volume 90.8 fL (78.0-98.0); Mean Platelet Volume 6.2 fL (7.4-10.4); Platelet Count 271 thou/uL (130-400); RBC Distribution Width 11.8 % (11.5-14.5); Red Blood Cell (RBC) Count 3.66 mill/uL (4.70-6.10); White Blood Cell (WBC) Count 6.2 thou/uL (4.8-10.8)
[2022-03-05 05:58] LABS: ALT (SGPT) 37 U/L (8-55); AST (SGOT) 53 U/L (5-34); Albumin 2.8 g/dL (3.4-4.8); Alkaline Phosphatase 76 U/L (40-110); Anion Gap 12 mmol/L (10-20); BUN (Urea Nitrogen) 12 mg/dL (8.4-25.7); Bilirubin, Total 0.5 mg/dL (0.2-1.2); Calc. Creatinine Clearance 80 mL/min (70-130); Carbon Dioxide 25 mmol/L (23-31); Chloride 102 mmol/L (98-107); Estimated GFR 104; Globulin 3.6 g/dL (2.4-3.5); Glucose 92 mg/dL (80-115); Potassium 3.8 mmol/L (3.5-5.1); Protein, Total 6.4 g/dL (5.8-8.1); Sodium 135 mmol/L (136-145)
[2022-03-05] MEDS: Polyethylene Glycol 3350 17 GM Packet PO SCH (08:47)
[2022-03-05] MEDS: Folic Acid 1 MG TAB PO SCH (08:47)
[2022-03-05] MEDS: Aspirin Chewable 81 MG TAB PO SCH (08:47)
[2022-03-05] MEDS: Multivit, Therapeutic 1 TAB PO SCH (08:47)
[2022-03-05] MEDS: Amlodipine 10 MG TAB PO SCH (08:47)
[2022-03-05] MEDS: traMADol HCl 50 MG TAB PO PRN (19:55)
[2022-03-05] MEDS: Thiamine 100 MG TAB PO SCH (19:56)
[2022-03-05] MEDS: Enoxaparin Sodium 30 MG/0.3 ML SYRINGE SC SCH (19:56)
[2022-03-06] MEDS: Aspirin Chewable 81 MG TAB PO SCH (09:56)
[2022-03-06] MEDS: Multivit, Therapeutic 1 TAB PO SCH (09:56)
[2022-03-06] MEDS: Folic Acid 1 MG TAB PO SCH (09:56)
[2022-03-06] MEDS: Polyethylene Glycol 3350 17 GM Packet PO SCH ×2 (11:20→20:17)
[2022-03-06] MEDS: Amlodipine 10 MG TAB PO SCH (14:22)
[2022-03-06] MEDS: Gabapentin 100 MG CAP PO SCH ×2 (14:24→20:17)
[2022-03-06] MEDS: Acetaminophen 325 MG TAB PO PRN (20:17)
[2022-03-06] MEDS: Enoxaparin Sodium 30 MG/0.3 ML SYRINGE SC SCH (20:18)
[2022-03-06] MEDS: Thiamine 100 MG TAB PO SCH (20:18)
[2022-03-07] MEDS: Acetaminophen 325 MG TAB PO PRN ×2 (03:45→10:38)
[2022-03-07 06:37] LABS: ALT (SGPT) 40 U/L (8-55); AST (SGOT) 60 U/L (5-34); Albumin 2.9 g/dL (3.4-4.8); Alkaline Phosphatase 95 U/L (40-110); Anion Gap 12 mmol/L (10-20); BUN (Urea Nitrogen) 15 mg/dL (8.4-25.7); Bilirubin, Total 0.5 mg/dL (0.2-1.2); Calc. Creatinine Clearance 76 mL/min (70-130); Calcium 8.9 mg/dL (7.8-10.44); Carbon Dioxide 24 mmol/L (23-31); Chloride 105 mmol/L (98-107); Estimated GFR 102; Globulin 3.8 g/dL (2.4-3.5); Glucose 99 mg/dL (80-115); Protein, Total 6.7 g/dL (5.8-8.1); Sodium 137 mmol/L (136-145)
[2022-03-07] MEDS: Gabapentin 100 MG CAP PO SCH ×3 (10:28→20:38)
[2022-03-07] MEDS: Amlodipine 10 MG TAB PO SCH (10:28)
[2022-03-07] MEDS: Aspirin Chewable 81 MG TAB PO SCH (10:29)
[2022-03-07] MEDS: Multivit, Therapeutic 1 TAB PO SCH (10:29)
[2022-03-07] MEDS: Folic Acid 1 MG TAB PO SCH (10:29)
[2022-03-07] MEDS: Enoxaparin Sodium 30 MG/0.3 ML SYRINGE SC SCH (20:38)
[2022-03-07] MEDS: Thiamine 100 MG TAB PO SCH (20:38)
[2022-03-08] MEDS: Acetaminophen 325 MG TAB PO PRN ×3 (05:59→20:38)
[2022-03-08 06:45] LABS: ALT (SGPT) 43 U/L (8-55); AST (SGOT) 62 U/L (5-34); Alkaline Phosphatase 93 U/L (40-110); Anion Gap 14 mmol/L (10-20); BUN (Urea Nitrogen) 13 mg/dL (8.4-25.7); Bilirubin, Total 0.5 mg/dL (0.2-1.2); Calc. Creatinine Clearance 74 mL/min (70-130); Calcium 8.9 mg/dL (7.8-10.44); Carbon Dioxide 22 mmol/L (23-31); Chloride 105 mmol/L (98-107); Estimated GFR 102; Globulin 4.1 g/dL (2.4-3.5); Glucose 94 mg/dL (80-115); Protein, Total 7.1 g/dL (5.8-8.1); Sodium 137 mmol/L (136-145)
[2022-03-08] MEDS: Gabapentin 100 MG CAP PO SCH ×3 (10:25→20:33)
[2022-03-08] MEDS: Multivit, Therapeutic 1 TAB PO SCH (10:26)
[2022-03-08] MEDS: Polyethylene Glycol 3350 17 GM Packet PO SCH (10:26)
[2022-03-08] MEDS: Aspirin Chewable 81 MG TAB PO SCH (10:26)
[2022-03-08] MEDS: Folic Acid 1 MG TAB PO SCH (10:26)
[2022-03-08] MEDS: Amlodipine 10 MG TAB PO SCH (10:26)
[2022-03-08] MEDS: Thiamine 100 MG TAB PO SCH (20:33)
[2022-03-08] MEDS: Enoxaparin Sodium 30 MG/0.3 ML SYRINGE SC SCH (20:33)
[2022-03-09 05:52] LABS: ALT (SGPT) 42 U/L (8-55); AST (SGOT) 57 U/L (5-34); Albumin 3.1 g/dL (3.4-4.8); Alkaline Phosphatase 88 U/L (40-110); Anion Gap 15 mmol/L (10-20); BUN (Urea Nitrogen) 16 mg/dL (8.4-25.7); Bilirubin, Total 0.5 mg/dL (0.2-1.2); Calc. Creatinine Clearance 80 mL/min (70-130); Calcium 9.2 mg/dL (7.8-10.44); Carbon Dioxide 23 mmol/L (23-31); Chloride 105 mmol/L (98-107); Estimated GFR 104; Globulin 3.9 g/dL (2.4-3.5); Glucose 100 mg/dL (80-115); Potassium 3.9 mmol/L (3.5-5.1); Sodium 139 mmol/L (136-145)
[2022-03-09 08:30] VITALS: BP 112/67; TEMP 98.1
[2022-03-09] MEDS: Gabapentin 100 MG CAP PO SCH (09:41)
[2022-03-09] MEDS: Folic Acid 1 MG TAB PO SCH (09:41)
[2022-03-09] MEDS: Multivit, Therapeutic 1 TAB PO SCH (09:42)
[2022-03-09] MEDS: Polyethylene Glycol 3350 17 GM Packet PO SCH (09:42)
[2022-03-09] MEDS: Amlodipine 10 MG TAB PO SCH (09:42)
[2022-03-09] MEDS: Aspirin Chewable 81 MG TAB PO SCH (09:42)
== END 2022-03-09 11:05 | DRG 252 ==
LOC: ERS 12:19 → SJJU 18:20 → SURG A 18:20 → UNDOADMIN 18:20
PROVIDERS: ADMIT Student in an Organized Health Care Education/Training Program; ATTEND Student in an Organized Health Care Education/Training Program
PROC: 041K0JL Bypass Right Femoral Artery to Popliteal Artery with Synthetic Substitute, Open Approach (ICD-10-PCS; principal; 2022-02-23)
PROC: 04CK0ZZ Extirpation of Matter from Right Femoral Artery, Open Approach (ICD-10-PCS; 2022-02-23)
PROC: 04UK0KZ Supplement Right Femoral Artery with Nonautologous Tissue Substitute, Open Approach (ICD-10-PCS; 2022-02-23)
DX: I73.9 Peripheral vascular disease, unspecified (principal); E43 Unspecified severe protein-calorie malnutrition; J18.9 Pneumonia, unspecified organism; J96.01 Acute respiratory failure with hypoxia; I74.09 Other arterial embolism and thrombosis of abdominal aorta; Z68.1 Body mass index [BMI] 19.9 or less, adult; E87.1 Hypo-osmolality and hyponatremia; E87.6 Hypokalemia; I10 Essential (primary) hypertension; F17.210 Nicotine dependence, cigarettes, uncomplicated; Y95 Nosocomial condition; K76.9 Liver disease, unspecified; M25.571 Pain in right ankle and joints of right foot; Z20.822 Contact with and (suspected) exposure to COVID-19; S91.301A Unspecified open wound, right foot, initial encounter; Z79.82 Long term (current) use of aspirin; Z59.00 Homelessness unspecified; Z71.6 Tobacco abuse counseling; Z86.718 Personal history of other venous thrombosis and embolism
CPT/HCPCS: 36415; 71045; 71275; 75635; 80048; 80053; 80061; 80202; 80306; 83036; 83605; 84145; 84484; 85025; 85027; 85652; 86140; 87040; 87081; 87633; 87804; 87811; 93005; 93010; 94640; 96365; 96367; 97139; C1768; C1889; J0690; J0692; J0696; J1100; J1644; J1650; J1885; J2270; J2370; J2405; J2704; J2720; J3370; J3490; J7050; J7120; J7620; Q9967; U0002

== ENCOUNTER 2022-03-17 09:59 | Emergency (ER) | payer OTHER ==
[2022-03-17 10:43] LABS: #Eosinphils 0.2 thou/uL (0.0-0.7); #Lymphocytes 2.2 thou/uL (1.20-3.40); #Monocytes 0.5 thou/uL (0.11-0.59); %Basophils 0.7 % (0.0-1.0); %Eosinophils 3.5 % (0.0-10.0); %Monocytes 10.9 % (0.0-10.0); Hemoglobin 11.6 g/dL (14.0-18.0); Mean Corpuscular HGB CONC 31.5 g/dL (32.0-36.0); Mean Corpuscular Hemoglobin 29.3 pg (27.0-31.0); Mean Corpuscular Volume 93.1 fL (78.0-98.0); Mean Platelet Volume 6.6 fL (7.4-10.4); Platelet Count 235 thou/uL (130-400); Red Blood Cell (RBC) Count 3.94 mill/uL (4.70-6.10); White Blood Cell (WBC) Count 4.9 thou/uL (4.8-10.8)
[2022-03-17 11:05] LABS: Bilirubin Negative (Negative); Blood, Urine Negative (Negative); Clarity Clear (Clear); Glucose, Urine (Dipstick) Normal (Negative); Ketone, Urine Negative (Negative); Leukocyte Negative Leu/uL (Negative); Nitrite Negative (Negative); Protein, Urine (Dipstick) Negative (Neg-Trace); Specific Gravity, Urine 1.006 (1.002-1.036); Urobilinogen Normal mg/dL (Less than 2); pH, Urine 6.5 (5.0-9.0)
[2022-03-17 11:10] LABS: ALT (SGPT) 37 U/L (8-55); AST (SGOT) 57 U/L (5-34); Albumin 3.2 g/dL (3.4-4.8); Alkaline Phosphatase 94 U/L (40-110); Anion Gap 13 mmol/L (10-20); BUN (Urea Nitrogen) 8 mg/dL (8.4-25.7); Bilirubin, Total 0.3 mg/dL (0.2-1.2); CK (CPK) 56 U/L (30-200); CRP (Inflammatory) Less than 0.50 mg/dL (= or < 0.5); Calc. Creatinine Clearance 0 mL/min (70-130); Carbon Dioxide 22 mmol/L (23-31); Chloride 108 mmol/L (98-107); Estimated GFR 103; Globulin 4.2 g/dL (2.4-3.5); Glucose 93 mg/dL (80-115); Potassium 3.9 mmol/L (3.5-5.1); Protein, Total 7.4 g/dL (5.8-8.1); Sodium 139 mmol/L (136-145)
== END 2022-03-17 12:27 | disposition home or self-care (01) ==
LOC: ERS 09:59
DX: I47.1 Supraventricular tachycardia (principal); I10 Essential (primary) hypertension; F17.210 Nicotine dependence, cigarettes, uncomplicated
CPT/HCPCS: 36415; 71045; 80053; 81003; 82550; 83880; 84484; 85025; 86140; 93005